=== PATIENT | male | born 1995 ===

== ENCOUNTER 2021-02-08 12:59 | Emergency (ER) | payer OTHER ==
[~2021-02-08] VITALS: Ht 182.9 cm; Wt 108.9 kg
[2021-02-08] MEDS ORDERED: CEFADROXIL500 MG PO (17:02)
== END 2021-02-08 17:37 | disposition home or self-care (01) ==
LOC: ER 12:59
DX: S61.221A Laceration with foreign body of left index finger without damage to nail, initial encounter (principal); W26.0XXA Contact with knife, initial encounter; Y93.89 Activity, other specified; Y92.69 Other specified industrial and construction area as the place of occurrence of the external cause; Y99.8 Other external cause status